=== PATIENT | female | born 1950 | race Two or more races ===

== ENCOUNTER 2016-05-16 16:51 | Emergency (ER) | payer MEDICARE ==
[~2016-05-16] VITALS: Ht 147.3 cm; Wt 56.7 kg
[2016-05-16] MEDS ORDERED: KETOROLAC TROMETHAMINE INJ 30 MG/ML VIAL IM ONE (18:00)
[2016-05-16] MEDS ORDERED: KETOROLAC TROMETHAMINE INJ 60 MG/2 ML VIAL IM ONE (18:05)
[2016-05-16 18:13] LABS: KETONES,URINE Negative (NEGATIVE); LEUKOCYTE ESTERASE ,URINE Small (NEGATIVE); PH,URINE 5.5 (5.0-8.0)
[2016-05-16 18:16] LABS: ADD UA MICROSCOPIC YES
[2016-05-16 18:23] LABS: ADD URINE CULTURE YES
[2016-05-16 19:51] VITALS: BP 138/84
== END 2016-05-16 19:52 | disposition home or self-care (01) ==
LOC: ER 16:53
DX: N23 Unspecified renal colic (principal); R10.12 Left upper quadrant pain; E03.9 Hypothyroidism, unspecified; Z90.89 Acquired absence of other organs
CPT/HCPCS: 76770; 81001; 87086; 96372; 99285; J1885; 81000-TC

== ENCOUNTER 2016-05-17 03:47 | Emergency (ER) | payer MEDICARE ==
[~2016-05-17] VITALS: Ht 154.9 cm; Wt 56.7 kg
[2016-05-17 03:53] VITALS: BP 171/116
[2016-05-17] MEDS ORDERED: ONDANSETRON 4 MG TAB.RAPDIS ONE (04:15)
[2016-05-17] MEDS ORDERED: HYDROMORPHONE 1 MG/1 ML DISP.SYRIN ONE (04:16)
[2016-05-17] MEDS ORDERED: CEPHALEXIN MONOHYDRATE 500 MG CAPSULE PO ONE ×2 (04:17→04:30)
[2016-05-17] MEDS ORDERED: ONDANSETRON 4 MG TAB.RAPDIS SL ONE (04:30)
[2016-05-17] MEDS ORDERED: HYDROMORPHONE 1 MG/1 ML DISP.SYRIN IM ONE (04:30)
== END 2016-05-17 05:27 | disposition home or self-care (01) ==
LOC: ER 03:50
DX: N12 Tubulo-interstitial nephritis, not specified as acute or chronic (principal); E03.9 Hypothyroidism, unspecified; Z90.89 Acquired absence of other organs
CPT/HCPCS: 96372; 99283; A4606; J1170; Q0162; Z7610

== ENCOUNTER 2019-04-12 09:19 | Emergency (ER) | payer MEDICARE, MEDICAID ==
[~2019-04-12] VITALS: Ht 154.9 cm; Wt 61.2 kg
[~2019-04-12 09:19] MED LIST: AMIT25TA9 PO; LEVO100T9 PO; TAMS-12 PO
--- NOTE | 2019-04-12 09:30 | NUR ---
Dizzy/mouth dry/neck pulsing started 2days ago went to see PMD. Patient a/ox4, breathing even and unlabored, no sob noted, needs attended, kept comfortable. Will continue to monitor.
[2019-04-12] MEDS ORDERED: IV NS 0.9% 1,000 ML BAG IV ONE (10:00)
[2019-04-12 10:06] LABS: BASOPHILS # (AUTO) 0.1 /CMM (0.0-0.2); BASOPHILS % (AUTO) 1.2 % (0.0-2.0); EOSINOPHILS % (AUTO) 2.1 % (0.0-6.0); HEMATOCRIT 43 % (33-45); HEMOGLOBIN 14.6 g/dL (11.5-14.8); LYMPHOCYTES # (AUTO) 1.7 /CMM (0.8-4.8); LYMPHOCYTES % (AUTO) 32.2 % (20.0-44.0); MEAN CORPUSCULAR HGB CONC 34 g/dl (31.0-36.0); MEAN CORPUSCULAR VOLUME 89 fL (82-100); MONOCYTES # (AUTO) 0.4 /CMM (0.1-1.30); MONOCYTES % (AUTO) 7.3 % (2.0-12.0); NEUTROPHILS # (AUTO) 3.1 /CMM (1.8-8.9); NEUTROPHILS % (AUTO) 57.2 % (43.0-81.0); PLATELET COUNT (AUTO) 329 /CMM (150-450); RED BLOOD CELL COUNT(AUTO) 4.81 MIL/uL (4.0-5.2); WHITE BLOOD COUNT (AUTO) 5.3 K/uL (4.3-11.0)
--- NOTE | 2019-04-12 10:08 | NUR ---
iv line established, blood drawn and sent to lab.
[2019-04-12 10:16] LABS: CALCIUM, SERUM 9.2 mg/dL (8.5-10.1); CARBON DIOXIDE 28 mmol/L (21-32); CHLORIDE 104 mmol/L (98-107); CREATININE 0.7 mg/dL (0.6-1.3); GLUCOSE 120 mg/dL (74-106); POTASSIUM 4.3 mmol/L (3.5-5.1); SODIUM SERUM 139 mmol/L (136-145); UREA NITROGEN, BLOOD 14 mg/dL (7-18)
--- NOTE | 2019-04-12 10:30 | NUR ---
patient taken to ct.
[2019-04-12] MEDS ORDERED: IOHEXOL-350 100 ML VIAL IV ONE (10:41)
[2019-04-12] MEDS ORDERED: IV NS 0.9% 250 ML IV ONE (10:41)
[2019-04-12] MEDS ORDERED: CT SWABBABLE VALVE TRANS SET 1 EA INFUS.SET MC ONE (10:43)
--- NOTE | 2019-04-12 11:12 | NUR ---
patient came back from CT
--- NOTE | 2019-04-12 12:21 | NUR ---
IV removed. Catheter intact and site benign. Pressure and 4x4 applied to site. No bleeding noted.Patient discharged to home in stable condition. Written and verbal after care instructions given. Patient verbalizes understanding of instruction.
[2019-04-12 12:22] VITALS: BP 137/92
== END 2019-04-12 12:22 | disposition home or self-care (01) ==
LOC: ER 09:22
DX: R00.2 Palpitations (principal); I10 Essential (primary) hypertension; E03.9 Hypothyroidism, unspecified; I45.10 Unspecified right bundle-branch block; Z90.89 Acquired absence of other organs; Z79.899 Other long term (current) drug therapy
CPT/HCPCS: 36415; 70496; 70498; 71045; 80048; 84484; 85025; 85730; 93005 ×2; 99284; J7030; J7050; Q9967